=== PATIENT | male | born 1980 | race Caucasian/White ===

== ENCOUNTER 2016-12-11 07:17 | Emergency (ER) | payer OTHER ==
[~2016-12-11] VITALS: Ht 180.3 cm; Wt 81.8 kg
[2016-12-11 07:23] VITALS: BP 122/80; PULSE 97; RESP 16; O2SAT 99
--- NOTE | 2016-12-11 07:33 | ED.REPORT ---
HPI-Dental/Mouth Prob Date of Service Dec 11, 2016 ED Provider: Dr. Kat Pt is a 35 year old male who presents to the ED with concerns for a swollen face that began yesterday. He reports that he has a fractured tooth on the upper right side. He denies any baseline medical conditions Nursing Notes Stated Complaint: POSS ABSCESS IN TOOTH Chief Complaint: Dental Nursing Notes Reviewed: Yes Allergies: Coded Allergies: No Known Allergies (Unverified , 12/11/16) Scheduled Penicillin V Potassium (Penicillin V Potassium) 500 Mg Tablet 500 MG PO QID General Time Seen by MD: 07:32 Chief Complaint Tooth pain Hx Obtained From: Patient Arrived By: Walk-in Onset Occurred: Yesterday Symptom Duration: Since onset Severity: Current: Moderate Severity: Maximum: Moderate Similar Sx Previous: Yes Past Medical History Past Medical History Healthy Past Surgical History Denies Family History Noncontributory Ambulatory Status Independent Review of Systems Constitutional: Denies: Chills, Fever, Malaise Ears / Nose / Throat: Reports: Toothache Respiratory: Denies: Non-productive cough, Shortness of breath, Wheezing GI: Denies: Abdominal pain, Diarrhea, Nausea, Vomiting Complete sys rev & neg: except as marked. Physical Exam Initial Vital Signs Vital Signs (First) Date Time Temp Pulse Resp B/P Pulse Ox O2 Delivery O2 Flow Rate FiO2 12/11/16 07:23 37.0 97 16 122/80 99 Room Air Initial VS: Reviewed General/Constitutional: Well-developed, Well-nourished Head / Eyes: Atraumatic, Normocephalic, PERRL Respiratory: Breath sounds normal, Clear to auscultation, No respiratory distress Cardiovascular: Regular rate & rhythm, Heart sounds normal, Intact distal pulses Skin: Warm, Dry, No cyanosis Neurologic: Alert, Oriented, Nonfocal Dental / Gums: Positive: Dental caries present, Negative: Dental abscess Mild swellin camilla the right jaw line Neck: Atraumatic, Supple, No meningismus Re-Eval/Medical Decision Source of Hx: Old records Re-Evaluation/Progress : Time of Eval: 07:44 Re-Evaluation/Progress Note: Pt is rechecked and informed of his diagnosis and the plan to discharge him at this time. He understands and agrees, all questions are addressed. Counseled Regarding: Diagnosis, Lab results, Need for follow-up, When/why to return to ED Discharge & Departure Primary Impression: Jaw pain Disposition: Home Discharge Condition All VS Reviewed: Yes Condition: Stable Patient Instructions: Dental Caries (ED) Additional Instructions: Take penicillin and ibuprofen. Follow-up with a dentist as soon as possible. Return to the ER if you develop a high fever, inability to swallow, difficulty breathing, or other concerns. Referrals: [facility], [facility] [place] Attestation Portions of this note were transcribed by Alanis Lira. I, Dr. Kat personally performed the history, physical exam and medical decision-making; I reviewed and confirmed the accuracy of the information in the transcribed note. Signed by: Brandon Bullock, 12/11/2016 07:43 copies to: [facility], [facility] Sergei Kat DO Dec 11, 2016 07:33 ELIEL LIRA Dec 11, 2016 07:45
[2016-12-11] MEDS ORDERED: PENI500T PO (07:44)
== END 2016-12-11 07:49 | disposition home or self-care (01) ==
LOC: SED 07:17
DX: R68.84 Jaw pain (principal); R22.0 Localized swelling, mass and lump, head

== ENCOUNTER 2017-01-26 12:42 | Inpatient (IN) | payer OTHER ==
[~2017-01-26] VITALS: Ht 180.3 cm; Wt 83.1 kg
[2017-01-26] VITALS (15 sets, daily range): BP systolic 11–130; BP diastolic 36–84; PULSE 100–113; RESP 13–23; O2SAT 99–100
[~2017-01-26 12:42] MED LIST: PENI500T PO
[2017-01-26] MEDS ORDERED: 0.9% Sodium Chloride 1,000 ML IV ONE (13:00)
--- NOTE | 2017-01-26 13:03 | ED.REPORT ---
HPI-Syncope Date of Service Jan 26, 2017 ED Provider: Mike Marie MD A 36 year old male with a history of daily NSAID use is brought to the ED via EMS due to syncope. The pt has noticed a lack of energy recently, for example not being able to walk far without feeling fatigued. He also reports lightheadedness whenever he stands and has experienced three syncopal episodes in the last three days. The pt's first syncopal episode was three days ago when changing tires at a friend's house. He was unconscious for "a few moments" He noticed "dark stool" after this event, which has continued. The pt was found down near the bathroom by a friend today and was hypotensive with a blood pressure in the eighties per medics. He reportedly stood up from the couch to use the restroom and passed out while walking back to the couch. The pt does not believe that he hit his head or face during these events. He denies chest pain, fever, diaphoresis, chills or shortness of breath. The pt does experience heartburn and indigestion several times per week, which he treats with antacids. He admits to recreational drug use, stating that his last use was two days ago. He denies injecting. The pt also denies any history of anemia. Nursing Notes Stated Complaint: SYNCOPE Chief Complaint: General Complaint Nursing Notes Reviewed: Yes (Synthelis, MINDBODY not reconciled) Allergies: Coded Allergies: No Known Allergies (Unverified , 12/11/16) Scheduled PRN Aspirin/Acetaminophen/Caffeine (Extra Pain Relief Caplet) 250 Mg-250 Mg-65 Mg Tablet 1 EACH PO DIRECTED PRN PRN dental pain General Time Seen by Provider: 13:08 Chief Complaint Other (Syncope) Hx Obtained From: Patient, EMS Arrived By: Ambulance Onset Occurred: 31 - 45 minutes ago Recent Healthcare: Recent doctor visit Similar Sx Previous: Yes Past Medical History Past Medical History heartburn daily NSAID use Past Surgical History None reported Family History Noncontributory Smoking History Unknown if Ever Smoker Social History recreational drug use, unspecified Alcohol Use: "Social" Ambulatory Status Independent Review of Systems Review of Systems Note: "dark stool" Constitutional: Denies: Chills, Fever Respiratory: Denies: Non-productive cough, Shortness of breath Cardiovascular: Denies: Chest pain GI: Denies: Abdominal pain, Bloody/tarry stool, Hematochezia, Nausea, Vomiting Musculoskeletal: Denies: Back pain, Neck pain Skin: Denies Diaphoresis Neurologic: Reports: Syncope Complete sys rev & neg: except as marked. Physical Exam Initial Vital Signs Vital Signs (First) Date Time Temp Pulse Resp B/P Pulse Ox O2 Delivery O2 Flow Rate FiO2 01/26/17 12:59 36.4 113 13 124/36 100 Room Air Initial VS: Reviewed, Vital signs abnormal (hypotensive for EMS) General/Constitutional: Awake, Alert Respiratory / Chest: Atraumatic, Breath sounds NL, Breath sounds = bilat, No respiratory distress Cardiovascular: Heart rate NL, Regular rhythm, Heart sounds NL Lower Extremity / Pelvis / MS: Atraumatic, Full range of motion Neurologic: Oriented X3, Speech NL, No motor deficits, No sensory deficits Head / Eyes: Atraumatic, Normocephalic, PERRL, EOMI ENT: Atraumatic, Airway patent, Mucous membranes moist Neck: Atraumatic, Supple, Full range of motion Abdomen: Atraumatic, Soft, Non-tender Back: Atraumatic, Full range of motion Skin: Atraumatic, No rash, Warm, Dry extremely pale Psychiatric: Affect NL, Mood NL Upper Extremity / MS: Atraumatic, Full range of motion Rectum / Perineum: Atraumatic dark melenic stool guaiac positive Interpretation & Diagnostics Lab Results Interpretation Result Diagram: 01/26/17 1301 01/26/17 1301 Test 01/26/17 13:00 01/26/17 13:01 01/26/17 14:26 Hold Galarza Top Tube Received (Received) White Blood Count 14.0th/mm3 (3.8-10.1) Red Blood Count 1.44mil/mm3 (4.40-5.80) Hemoglobin 4.5g/dL (13.8-17.2) Hematocrit 13.2% (41.0-50.0) Mean Corpuscular Volume 91.7fL (81-100) Mean Corpuscular Hemoglobin 31.3pg (27.0-35.0) Mean Corpuscular Hemoglobin Concent 34.1% (32.0-37.0) Red Cell Distribution Width 13.4% (12.3-15.4) Platelet Count 278bil/L (150-400) Neutrophils (%) (Auto) 77.3% (40-74) Lymphocytes (%) (Auto) 14.8% (14-46) Monocytes (%) (Auto) 6.9% (4-12) Eosinophils (%) (Auto) 0.4% (0-5) Basophils (%) (Auto) 0.2% (0-3) Prothrombin Time 11.1sec (8.1-12.5) Prothromb Time International Ratio 1.04ratio Sodium Level 135mEq/L (134-144) Potassium Level 3.9mEq/L (3.5-5.2) Chloride Level 104mEq/L (97-108) Carbon Dioxide Level 21mmol/L (18-29) Blood Urea Nitrogen 36mg/dL (6-20) Creatinine 0.82mg/dL (0.76-1.27) Estimat Glomerular Filtration Rate 112mL/min (>59) Glucose Level 133mg/dL (60-99) Calcium Level 6.8mg/dL (8.5-10.1) Total Bilirubin < 0.2mg/dL (0.0-1.2) Aspartate Amino Transf (AST/SGOT) 13U/L (0-50) Alanine Aminotransferase (ALT/SGPT) 10U/L (0-44) Alkaline Phosphatase 45U/L (25-150) Total Protein 4.0g/dL (6.4-8.4) Albumin 2.2g/dL (3.4-5.0) Lab Results Interpretation: CBC mild leukocytosis, nonspecific,-severe anemia (Hemoglobin: 4.5), normal MCV CMP normal, elevated BUN/creatinine ratio 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 Dictated by: Anoop Rivera M.D. on 01/26/2017 at 13:37 Approved by: Anoop Rivera M.D. on 01/26/2017 at 13:37 Interpretation / Wet Read by: Interpret - Radiologist Re-Eval/Medical Decision Med Decision/Clinical Course This is a 36-year-old male who denies a previous past medical history as described history of frequent NSAID use, history of frequent dyspepsia requiring toms, this had several days of what sounds like colonic stools and now has lightheadedness and several episodes of syncope or near syncope. The patient is an extremely on engaged, apathetic ( inappropriately so) historian increasing weakness and dizziness. Today he got up to go to the toilet and say "I knew it was a male, immediately to the bathroom and on the way back passed out. He is found hypotensive by the medics and received fluids. His hypertension is resolved. He still tachycardic. He adamantly denies chest pain , shortness of breath, diaphoresis, pleuritic pain, leg swelling, but admitted to Black stools for the past several days. On exam, the patient's extremely weak, extremely pale, and mildly tachycardic- but is no longer hypotensive. Heart and lung exams are normal. He has no tract callejas and indicates he does not inject, but does admit that he babbles and polysubstance abuse and claims that he last used a few days ago. His abdomen is soft and nontender, rectal exam is dark stool, guaiac positive. There is no swelling in the extremities edema or findings of clinical DVT PE. EKG reveals a sinus tachycardia, but no other findings. Labs reveal a severe anemia, normal MCV, but also notable for moderate to significant hypocalcemia. Tox is also been requested. The patient is being admitted. His been typed and cross are waiting for blood be ready to initiate his transfusion, PPI therapy is sitting started. GI has been consult. Indications being admitted. 500 mg of calcium gluconate being given, and a PTH has been sent for the hypocalcemia. Source of Hx: Old records, EMS Re-Evaluation/Progress : Time of Eval: 13:31 Patient Status: Condition improved Re-Evaluation/Progress Note: Pt rechecked, who is stable. The diagnosis and plan for admission are discussed. The pt understands and agrees with the plan. All questions are addressed at this time. Consultation #1: Referral / Consult Name: Tadeo Washington MD Call Returned at: 13:36 Plant Buyer: Agrees with eval Note: Spoke with Dr. Anne, GI, regarding pt's case. Dr. Anne agrees with the evaluatino and plan. Consultation #2: Referral / Consult Name: Chemo Mason Consulted With: Hospitalist Call Returned at: 13:57 Plant Buyer: Agrees with eval, Agrees with plan, Accepts admit Note: Spoke with Dr. Mason, hospitalist, regarding pt's case. Dr. Mason agrees with the evaluation and agrees to admit the pt. Differential Diagnosis: Positive: Anemia, Illicit drug use, Negative: Abdominal aortic aneurysm, Acute coronary syndrome, Dysrhythmia, Electrolyte disorder, Encephalitis, Head trauma, Pneumothorax, Prolonged QT syndrome, Pulmonary embolus, Subarachnoid hemorrhage Counseled Regarding: Diagnosis, Lab results, Need for admission Discharge & Departure Impression: Primary Impression: Symptomatic anemia Additional Impressions: GI bleed due to NSAIDs Hypocalcemia Substance abuse Disposition: ADMITTED TO HOSPITAL Discharge Condition All VS Reviewed: Yes Condition: Stable Referrals: Torres Ashley DO Crit Care Except Billable Proc Time Spent: 30-74 minutes Services Performed: Patient management by me, Time spent at bedside, Reviewing test results, Reviewing imaging, Discussing patient care, Documentation in record Scribe Attestation Portions of this note were transcribed by Marilia Coffey. I, Dr. Marie personally performed the history, physical exam and medical decision-making; I reviewed and confirmed the accuracy of the information in the transcribed note. copies to: Torres Ashley Matthew F MD Jan 26, 2017 13:03 MARILIA COFFEY Jan 26, 2017 13:26
[2017-01-26 13:11] LABS: BASOPHILS % (AUTO) 0.2 % (0-3); EOSINOPHILS % (AUTO) 0.4 % (0-5); MONOCYTES % (AUTO) 6.9 % (4-12); Mean Corpuscular Hemoglobin 31.3 pg (27.0-35.0); Mean Corpuscular Volume 91.7 fL (81-100); NEUTROPHILS % (AUTO) 77.3 % (40-74); Platelet Count 278 bil/L (150-400)
[2017-01-26] MEDS ORDERED: Calcium GLUCOnate 10% (Gm) 1 Gm/10 mL Inj IVPUSH ONE (13:35)
--- NOTE | 2017-01-26 13:39 | DRSVH ---
PROCEDURE: X-RAY CHEST ONE VIEW, PORTABLE ([id number]) INDICATIONS: syncope TECHNIQUE: One view of the chest was acquired. COMPARISON: None. FINDINGS: Surgical changes and devices: None. Lungs and pleura: No pleural effusions or pneumothorax. Lungs are clear. Mediastinum: Mediastinal contours appear normal. Heart size is normal. Bones and chest wall: No suspicious bony lesions. Overlying soft tissues appear unremarkable. IMPRESSION: Normal for age. Dictated by: Anoop Rivera M.D. on 01/26/2017 at 13:37 Approved by: Anoop Rivera M.D. on 01/26/2017 at 13:37
[2017-01-26] MEDS ORDERED: Pantoprazole Inj 80 MG, Pharmacy To Mix 1 EA in 0.9% Sodium Chloride 80 ML IV ONE ×2 (13:40)
[2017-01-26] MEDS ORDERED: Pantoprazole 4 mg/mL 10 mL Inj IVPUSH ONE (13:40)
[2017-01-26 13:56] LABS: INR 1.04 ratio
[2017-01-26] MEDS ORDERED: [UNRECOGNIZED DRUG - CODE] PO (14:45)
--- NOTE | 2017-01-26 15:01 | NUR ---
Admit nurse note Admission assessment completed in the ER. Pt. wakes to verbal stimulus but falls asleep during my interview several times. He denies pain or other complaints aside from feeling cold. Pt. gives history of chronic dental pain, for which he takes excedrin regularly, as well as heartburn, R ear hearing loss/deafness and meth use. Pt. reports last using meth 1 week ago. NKA verified. Report given to Lucretia Goldman.
--- NOTE | 2017-01-26 15:09 | CONS ---
[address] [address] CONSULTATION REPORT PATIENT: YUAN COREA : 1980 MR#: [id number] ADMIT: 01/26/2017 JOB ID: [id number] DATE OF SERVICE: 01/26/2017 GASTROENTEROLOGY CONSULTATION: REASON FOR CONSULTATION: Melena and anemia. HISTORY OF PRESENT ILLNESS: A 36-year-old male with a history of NSAID use, in which he takes Excedrin three times a day, two pills each time, who presents here for melena and anemia. The patient was brought here to the emergency department by EMS. Found to have melenic stool x1 day. The patient was found down in the bathtub by a friend today. The patient admits to recreational drug use. The patient was brought in with a hemoglobin of 4.5, hematocrit of 13. The patient states he noticed that he had been having black stool. He has been taking Excedrin for the past 2-4 weeks. The patient never had an EGD or colonoscopy in the past. Denies family history of colon cancer, IBD, or celiac disease. The patient denies bright red blood per rectum, nausea, vomiting, hematemesis, abdominal pain, unintentional weight loss. PAST MEDICAL HISTORY: None. PAST SURGERIES: None. ALLERGIES: No known drug allergies. MEDICATIONS: None. SOCIAL HISTORY: He has recreational drug use as well as drinking. No smoking. FAMILY HISTORY: Negative for colon cancer, IBD, or celiac disease. REVIEW OF SYSTEMS: The patient denies headache, blurred vision, nausea, vomiting, chest pain, shortness of breath, abdominal pain, skin rash, or joint pain. PHYSICAL EXAMINATION: Vital signs upon presentation: Temperature is 36.4, pulse 113, respiratory rate 13, blood pressure 124/36, saturating 100% on room air. General: No apparent distress. Head: No scars. Eyes: Anicteric. Throat: Supple. Lungs: Clear to auscultation bilaterally. Cardiovascular: Regular rhythm and rate. Abdomen: Soft, nondistended, nontender. Normal bowel sounds. Extremities: No cyanosis, clubbing, or edema. LABORATORY: Labs show sodium 135, potassium 3.9, chloride 104, bicarb 21, BUN 36, creatinine 0.8, glucose 133. Calcium 6.8. Total bili 0.2, AST 13, ALT 10, alk phos 45. Total protein 4.0, albumin 2.2. White blood cell count 14.0, hemoglobin 4.5, hematocrit 13, platelet count of 278. INR 1.0. ASSESSMENT AND PLAN: A 36-year-old male who presents here with melena and profound anemia with a hemoglobin of 4.5, with a history of Excedrin two pills three times a day for the past 2-4 weeks. At this point in time the patient's differential diagnosis includes bleeding peptic ulcer disease (most likely) vs possibly pathology with the right side of the colon (which is unlikely). The patient will need to be hemodynamically stable prior to doing an upper endoscope. RECOMMENDATIONS: 1. Aggressive IV fluid hydration. 2. Please transfuse packed red blood cells per ER physician and hospitalist team. 3. N.p.o. except for medications. 4. GoLYTELY prep today for EGD and colonoscopy with anesthesia scheduled for tomorrow. 5. Protonix drip. 6. We will continue to follow. MTDD
[2017-01-26] MEDS ORDERED: Ondansetron 2 mg/mL 2 mL Inj IVPUSH PRN ×2 (15:25→19:20)
[2017-01-26] MEDS ORDERED: Alum-Mag Hydrox-Simeth 30 mL Suspension PO PRN ×2 (15:25→19:20)
--- NOTE | 2017-01-26 17:20 | PCM.HPMED ---
Subjective Date of Service Jan 26, 2017 Primary Provider: Admitting Physician: Chemo Mason Primary Care Physician: Luciano Attending Physician: Chemo Mason Admit Status: From the Emergency Department, Full Admit, Admit to Yellow Team, Critical Care Chief Complaint: Generalized weakness and syncope. . History of Present Illness: Ritesh Gardner is a 36-year-old male with a past medical history significant for GERD, dental caries, and methamphetamine use disorder who presented to [facility] emergency department via EMS due to syncope. The patient reports that over the last week he has noticed progressive weakness to the extent that he collapses. He reports that he has not been able to walk far without feeling fatigued. He also reports lightheadedness whenever he stands and has experienced three syncopal episodes in the last three days. The patient first syncopal episode was three days ago when changing tires at a friend's house. He was unconscious for "a few moments." She endorses melena a few days ago. Today the patient was found down near the bathroom by a friend and was hypotensive with a SBP in the 80's per paramedics. He reportedly stood up from the couch to use the restroom and passed out while walking back to the couch. He does not believe that he has had not had any trauma during his syncopal episodes. He denies headache, chest pain, shortness of breath, diaphoresis, nausea, vomiting, abdominal pain, fever, chills, dysuria, hematochezia, diarrhea or constipation. The patient endorses acid reflux several times per week which he takes Tums for. He has been taking Excedrin extra strength for several weeks due to a recent toothache. He admits to taking 4-6 pills with food per day. He admits to methamphetamine use and reports his last use was one week ago. He denies IV drug use. He also denies any history of anemia, IBD , or previous GI bleed. Vital signs in the ER: Temperature 36.4. Pulse 113. Respiratory rate 13. Blood pressure 124/36. Pulse ox 100% on room air. He received calcium gluconate IV 0.5 g 1, pantoprazole IV 80 mg 1, and 3 L of NS. No PCP. Review of Systems: A comprehensive review of systems was conducted with the patient and found to be negative except as above in the History of Present Illness. . Allergies Coded Allergies: No Known Allergies (Unverified , 12/11/16) Home Medications Excedrin Extra Strength. . PMH 1. GERD. 2. Methamphetamine use disorder. 3. Dental caries. . Surgical History None. . Family History Mother with diabetes mellitus type II. Father's history is unknown. One sister who is healthy. No personal or family history of colon cancer or IBD. . Social History Hx Alcohol Use: Yes (as teen) Hx Substance Use: Yes (smokes methamphetamine - last use 1 week ago) Hx Tobacco Use: Yes Smoking Status: Current Every Day Smoker (1 PPD 20+ years) Additional Information The patient is single. He has 3 children, 1 son and 2 daughters who are healthy. He is currently unemployed. . Exam Vital Signs Vital Sign - Last Date Time Temp Pulse Resp B/P Pulse Ox O2 Delivery O2 Flow Rate FiO2 01/26/17 16:28 36.9 104 19 111/45 100 Room Air Exam General: Young male lying in bed and in no acute distress, well-developed, well- nourished, appropriately interactive. HEENT: Normocephalic, atraumatic. External ears without defect. Pupils equal, round, and reactive to light. Scleral pallor. Anicteric sclerae, moist conjunctivae, and no lid lag. Oropharynx free of erythema and cobble stoning with moist mucosa. Neck: Supple with full range of motion. No lymphadenopathy or thyromegaly. Cardiovascular: Regular rhythm, tachycardic, without murmurs, rubs, or gallops appreciated Pulmonary: Clear to auscultation bilaterally without crackles, wheezes, or rhonchi. Normal respiratory effort with no use of accessory muscles. Abdomen:Soft, nontender, nondistended, bowel sounds present. No hepatosplenomegaly or masses appreciated. Extremities: No clubbing, cyanosis, or edema. Skin: Normal temperature, turgor, and texture; no rash, ulcers, or subcutaneous nodules appreciated. Neurological: Cranial nerves grossly intact. Normal muscle strength, tone, and bulk. Reflexes, coordination, and sensory function within normal limits. No known gait impairment. Psychiatric: Normal mood and flat affect. Alert and oriented to person, place, and time. . Lab and Diagnostics Labs Item Value Date Time Prothrombin Time 11.1 sec 01/26/17 1301 Prothromb Time International Ratio 1.04 ratio 01/26/17 1301 Item Value Date Time Urine Opiates Screen Negative 01/26/17 1426 Urine Methadone Screen Negative 01/26/17 1426 Urine Barbiturates Screen Negative 01/26/17 1426 Urine Amphetamines Screen Negative 01/26/17 1426 Urine Benzodiazepines Screen Negative 01/26/17 1426 Urine Cocaine Metabolite Screen Negative 01/26/17 1426 Urine Cannabinoids Screen Negative 01/26/17 1426 Item Value Date Time Calcium Level 6.8 mg/dL *L 01/26/17 1301 Total Bilirubin < 0.2 mg/dL 01/26/17 1301 Aspartate Amino Transf (AST/SGOT) 13 U/L 01/26/17 1301 Alanine Aminotransferase (ALT/SGPT) 10 U/L 01/26/17 1301 Alkaline Phosphatase 45 U/L 01/26/17 1301 Total Protein 4.0 g/dL L 01/26/17 1301 Albumin 2.2 g/dL L 01/26/17 1301 Parathyroid Hormone (Intact) 67 pg/mL H 01/26/17 1447 Result Diagram: 01/26/17 1301 01/26/17 1301 X-Rays, CTs and MRIs X-RAY CHEST ONE VIEW, PORTABLE IMPRESSION: Normal for age. Dictated by: Anoop Rivera M.D. on 01/26/2017 at 13:37 Approved by: Anoop Rivera M.D. on 01/26/2017 at 13:37 . Assessment & Plan Ritesh Gardner is a 36-year-old male with a past medical history significant for GERD, dental caries, and methamphetamine use disorder who presented to [facility] emergency department via EMS due to syncope. 1. Acute upper GI bleed, present on admission. Active. - Patient presents with progressive generalized weakness, syncope, and melena with significant anemia. Afebrile without leukocytosis. - Initial hemoglobin and hematocrit 4.5 and 13.2 respectively and BUN 36 which supports acute blood loss anemia. - Received 3 L of NS in the ED. Continue aggressive IV fluid hydration. - Ordered 3 units of PRBC. - NPO except for medications. - Ordered GoLYTELY prep today for EGD and colonoscopy with anesthesia tomorrow per GI. - Continue Protonix gtt. - Gastroenterology consulted, Dr. Washington, who plans for both upper and lower endoscopy tomorrow. We appreciate his time and recommendations. 2. Acute blood loss anemia, present on admission. Active. - Patient has been crossed and typed and is currently receiving 3 units of PRBCs. - Continue to monitor vital signs and H&H closely. 3. Hypocalcemia, present on admission. Active. - Likely secondary to severe illness and profound anemia. - Ordered iPTH and ionized calcium, pending. Chronic problems: 3. Amphetamine use disorder, present on admission. Stable. - The patient reports that he smokes methamphetamines and that his last use was one week ago. - Counseled the patient on methamphetamine cessation and abstinence. - Ordered a social work referral. 4. GERD, present on admission. Stable. - Continue PPI drip as above. PRN antiemetics: Zofran and Maalox. PRN bowel regimen: Senna and MiraLAX. PRN analgesics: Tylenol. Patient is admitted under inpatient status with expected length of stay greater than 2 midnights due to severity of presenting symptoms, risk of adverse event, and complexity of treatment plan. . Resuscitation Status: CPR: Attempt Resuscitation VTE Prophylaxis Contraindicate VTE Med Contraindication: Bleeding Time spent 60 min Attending Statement The patient was seen and examined together with Dr. Garcia on 01/26/17 and I agree with the history, exam and plan as outlined in the note above. Letty Garcia DO Jan 26, 2017 17:20 Chemo Mason Jan 27, 2017 10:29
--- NOTE | 2017-01-26 17:20 | NUR ---
Pt admitted to CCU at approx 1630hrs Pt admitted from the ER with 1st unit of RBC's infusing. Pt is drowsy, but easily woken and is approp in conversation. Pt is in ST in the 110's, BP 110's to 120's sys. Protonix is infusing. No obvious bleeding noted at this time.
[2017-01-26 18:26] LABS: APPEARANCE,URINE CLEAR (CLEAR,HAZY); COLOR,URINE STRAW (YELLOW); OCCULT BLOOD,URINE SMALL (NEGATIVE); PH,URINE 7.5 (5.0-8.0); UROBILINOGEN,URINE NORMAL (NORMAL)
--- NOTE | 2017-01-26 18:27 | NUR ---
IVFs prior to arrival to CCU Pt received 2l NS by medics and an additional 1l NS in the ER. His 1st unit of RBC's was started in the ER and completed in CCU. 2nd unit RBC's starting now.
[2017-01-26] MEDS: Pantoprazole Inj 80 MG in 0.9% Sodium Chloride 80 ML IV SCH ×2 (19:20→23:29)
[2017-01-26] MEDS ORDERED: Polyethylene Glycol (PEG) 17 Gm Powder PO PRN (19:20)
[2017-01-26] MEDS ORDERED: PEG/Electrolytes 4,000 mL Solution PO SCH (19:35)
[2017-01-27] VITALS (11 sets, daily range): BP systolic 96–116; BP diastolic 51–68; PULSE 71–97; RESP 13–16; O2SAT 96–100
[2017-01-27 03:12] LABS: BASOPHILS % (AUTO) 0.2 % (0-3); EOSINOPHILS % (AUTO) 0.4 % (0-5); MONOCYTES % (AUTO) 8.9 % (4-12); Mean Corpuscular Volume 85.8 fL (81-100); NEUTROPHILS % (AUTO) 54.2 % (40-74); Platelet Count 247 bil/L (150-400)
[2017-01-27 03:39] LABS: TROPONIN T 0.01 ug/L (0.0-0.011)
[2017-01-27 03:50] LABS: Magnesium 1.5 mg/dL (1.6-2.6)
--- NOTE | 2017-01-27 04:06 | NUR ---
Mentation/Cardiac/GI Patient drowsy but aware of surroundings, pleasant and cooperative, BP stable this shift, pt received 3 units PRBC's and HGB 7.2 and HCT 19.0 this AM, notified, no new orders received, patient finished GoLytley prep at 0300, felt nauseated when drinking it but did not have any emesis, passing maroon colored liquid stool, NPO since midnight except for the GoLytley, A-Febrile and HR decreased from the 110's to the 60-70's at this time, no distress noted, no active bleeding or bright red blood noted when patient uses bedside commode. Addendum: 01/27/17 at 0413 by AYAD VIVAR RN Amended: Links added.
[2017-01-27] MEDS ORDERED: Magnesium Sulf 4 Gm/100 mL H2O 4 GM in IV Premix 1 EACH IV ONE (04:20)
[2017-01-27] MEDS ORDERED: Lactated Ringer's 1,000 ML IV ONE ×2 (06:00→14:54)
[2017-01-27] MEDS ORDERED: Ketamine 10 mg/mL 20 mL Inj ONE (06:04)
[2017-01-27] MEDS ORDERED: Propofol 10,000 mCg/mL 20 mL Inj ONE (06:04)
[2017-01-27] MEDS ORDERED: Magnesium Sulf 2 Gm/50mL Water 2 GM in IV Premix 1 EACH IV ONE (06:50)
[2017-01-27] MEDS: Pantoprazole Inj 80 MG in 0.9% Sodium Chloride 80 ML IV SCH ×2 (11:12→21:41)
--- NOTE | 2017-01-27 11:32 | PCM.HPANE ---
Patient Data Surgeon Admitting Provider:Chemo Mason Attending Provider:Chemo Mason Primary Care Physician:Nopcp Other Provider: Reason for Visit Gi Bleed,Anemia Ht/WT & BMI Height (Feet): 5 Height (Inches): 11.00 Weight (Kilograms): 86.600 Body Mass Index 26.08 Allergies Coded Allergies: No Known Allergies (Unverified , 12/11/16) Past Anesthesia History Anesthesia History: Denies:: Abnormal Airway, Anesthesia Reactions, Difficult Intubation Diabetes History Hx Diabetes?: No MRSA MRSA: No Medications Hypertension Medication: No Home Meds Incl Beta Bashir: No Reported Medications Aspirin/Acetaminophen/Caffeine (Extra Pain Relief Caplet)250 Mg-250 Mg-65 Mg Tablet1 Each PO DIRECTED PRN dental pain 01/26/17 Discontinued Scripts Penicillin V Potassium 500 Mg [id number] Mg PO QID #40 TABLET Ref 0 Prov:Sergei Kat DO 12/11/16 History History of ENT Problems?: Yes HEENT History: Denies:: Cataracts Dysphagia Glaucoma Sinus Problem Denture Type: None Teeth Condition: Missing Teeth Other HEENT Pertinent History: R ear hearing impairment, chronic dental pain Hx of Heart Problems?: No Cardiovascular History: Denies:: Congestive Heart Failure Hx of Respiratory Problem?: No Respiratory History: Denies:: Asthma COPD Chest Surgery Cough Dyspnea Emphysema Hemoptysis Oxygen Administration Pneumonia Pulmonary Embolism Tuberculosis Use of C-PAP Machine Use of Inhalers / NEBS Hx Neurologic Problems?: No Hx of GI Problems?: Yes Other GI Pertinent History: GIB 01/26/17 admission Hx of Problems?: No Male Hx: Denies:: Prostate Problems Scrotal Mass Testicular Surgery Hx Musculoskeletal Problems?: No Hx of Psycho/Social Problems?: No Hx Surgeries?: No Hx Any Other Health Problems?: No Other History: Denies:: Cancer Hospitalization Thyroid Disease History Blood Transfusions: Positive for:: Accept Blood Products? Denies:: Blood Transfusions Hx Diabetes: No Hx Alcohol Use: Yes (as teen)Hx Substance Use: Yes (smokes methamphetamine - last use 1 week ago) Smoking Status: Current Every Day Smoker Have You Smoked inLast 12 mo: YesApprox How Many Cigarettes/day: 20 cigarettes daily Stop/Bang Treated for Sleep Apnea?: No Do You Have a CPAP Machine?: No S-Snoring: Do You Snore Loudly: No O-Obsered: Observed not breath: No P-Blood Pressure: treated: No B- Body Mass Index > 35 kg/m2: No A- Age over 50: No N- Neck Large Circumference: No G- Gender Male: Yes TOMASZ Risk Assessment: Low Risk, <3 Yes Risk Assessment Category Category 1A: Patient has history of documented sleep apnea, and HAS NOT received any narcotic, sedative or anesthesia administration during this stay. Category 1B: Patient has history of documented sleep apnea, and HAS received any narcotic , sedative or anesthesia administration during this stay Category 2: Patient has SUSPECTED Obstructive Sleep Apnea, and HAS received any narcotic , sedative or anesthesia administration during this stay. Category 3: Patient has SUSPECTED Obstructive Sleep Apnea and HAS NOT received narcotic, sedative or anesthesia administration during this stay. Category 4: Outpatient in Procedural Areas with known sleep apnea or who screen positive for High Risk via the STOP/BANG questionnaire. Exam Exam Vital Signs Vital Signs Date Time Temp Pulse Resp B/P Pulse Ox O2 Delivery O2 Flow Rate FiO2 01/27/17 11:14 36.9 95 14 103/54 98 Room Air 01/27/17 09:10 75 01/27/17 08:30 37.0 81 14 112/53 99 Room Air 01/27/17 04:03 37.1 71 13 107/61 98 Room Air General Appearance: Alert, Oriented X3, Cooperative, No Acute Distress HEENT/AIRWAY: MP 2 Lungs: Clear to Auscultation, Normal Air Movement Heart: Exam Unremarkable, Regular Rate/Rhythm, No Murmurs/Rubs/Gallops Meds/Labs/Diagnostics Admission Meds Current Medications Sodium Chloride (Normal Saline) 1,000 ml @ 0 mls/hr Q0M ONCE IV Last administered on 01/26/17 13:28; Start 01/26/17 at 13:00; Stop 01/26/17 at 13:03 ; Status DC Calcium Gluconate (Calcium GLUCO 10% (Gm) Inj) 0.5 gm ONCE ONCE IVPUSH Last administered on 01/26/17 14:13; Start 01/26/17 at 13:35; Stop 01/26/17 at 13:39 ; Status DC Pantoprazole 80 mg 80 mg STAT ONCE IVPUSH Last administered on 01/26/17 14:05 ; Start 01/26/17 at 13:40; Stop 01/26/17 at 13:41; Status DC Pantoprazole 80 mg/Miscellaneous 1 ea/Sodium Chloride 100 ml @ 10 mls/hr ONCE ONCE IV Last administered on 01/26/17 14:05; Start 01/26/17 at 13:40; Stop at 23:39; Status DC Lactated Ringer's (Lr) 1,000 ml @ 10 mls/hr Q24H ONCE IV Last administered on 01/27/17 04:38; Start 01/27/17 at 06:00; Stop 01/28/17 at 05:59 Nicotine 1 patch 1 patch DAILY TOPICAL Last administered on 01/26/17 20:37; Start 01/26/17 at 19:20; Stop 01/27/17 at 07:00; Status DC Pantoprazole/ Sodium Chloride (Protonix Inj/ Normal Saline) 100 ml @ 10 mls/hr Q10H IV Last administered on 01/27/17 11:12; Start 01/26/17 at 19:20 Polyethylene Glycol/ Electrolytes 4000 ml 4,000 ml ONCE PO Last administered on 01/26/17 20:36; Start 01/26/17 at 19:35; Stop 01/27/17 at 10:35; Status DC Magnesium Sulfate/ Premix (Magnesium Sulf 4 Gm/100 mL H2O/ IV Premix) 100 ml @ 33.333 mls/ hr ONCE ONCE IV Last administered on 01/27/17 04:38; Start at 04:20; Stop 01/27/17 at 07:19; Status DC Labs Test 01/26/17 13:00 01/26/17 13:01 01/26/17 14:26 01/26/17 14:47 Hold Galarza Top Tube Received (Received) Prothrombin Time 11.1sec (8.1-12.5) Prothromb Time International Ratio 1.04ratio Total Bilirubin < 0.2mg/dL (0.0-1.2) Aspartate Amino Transf (AST/SGOT) 13U/L (0-50) Alanine Aminotransferase (ALT/SGPT) 10U/L (0-44) Alkaline Phosphatase 45U/L (25-150) Total Protein 4.0g/dL (6.4-8.4) Albumin 2.2g/dL (3.4-5.0) Urine Color Straw (YELLOW) Urine Appearance Clear (CLEAR,HAZY) Urine pH 7.5 (5.0-8.0) Urine Specific [place] 1.010 (1.003-1.035) Urine Protein 100mg/dL (NEG,TRACE) Urine Glucose (UA) 100mg/dL (NEGATIVE) Urine Ketones Negativemg/dL (NEGATIVE) Urine Occult Blood Small (NEGATIVE) Urine Nitrite Negative (NEGATIVE) Urine Bilirubin Negative (NEGATIVE) Urine Urobilinogen Normalmg/dL (NORMAL) Urine Leukocyte Esterase Negative (NEGATIVE) Urine RBC 0-2/hpf (0-2) Urine WBC 0-5/hpf (0-5) Urine Epithelial Cells None/hpf (NONE-MOD) Urine Crystals None seen (NONE SEEN) Urine Bacteria None/hpf (NONE-FEW) Urine Hyaline Casts None/lpf (NONE) Urine Granular Casts None seen (NONE SEEN) Urine Waxy Casts None seen (NONE SEEN) Urine Red Blood Cell Casts None seen (NONE SEEN) Urine White Blood Cell Casts None seen (NONE SEEN) Urine Mucus None seen (None Seen) Urine Trichomonas None seen (NONE SEEN) Urine Yeast None (NONE SEEN) Urinalysis Comment None Urine Culture Reflexed Not indicated Urine Opiates Screen Negative Urine Methadone Screen Negative Urine Barbiturates Screen Negative Urine Amphetamines Screen Negative Urine Benzodiazepines Screen Negative Urine Cocaine Metabolite Screen Negative Urine Cannabinoids Screen Negative Parathyroid Hormone (Intact) 67pg/mL (15-65) Test 01/27/17 03:00 01/27/17 07:22 White Blood Count 10.2th/mm3 (3.8-10.1) Red Blood Count 2.32mil/mm3 (4.40-5.80) Mean Corpuscular Volume 85.8fL (81-100) Mean Corpuscular Hemoglobin 31.0pg (27.0-35.0) Mean Corpuscular Hemoglobin Concent 36.2% (32.0-37.0) Red Cell Distribution Width 15.7% (12.3-15.4) Platelet Count 247bil/L (150-400) Neutrophils (%) (Auto) 54.2% (40-74) Lymphocytes (%) (Auto) 35.6% (14-46) Monocytes (%) (Auto) 8.9% (4-12) Eosinophils (%) (Auto) 0.4% (0-5) Basophils (%) (Auto) 0.2% (0-3) Band Neutrophils % 1% (1-5) Sodium Level 141mEq/L (134-144) Potassium Level 3.5mEq/L (3.5-5.2) Chloride Level 107mEq/L (97-108) Carbon Dioxide Level 22mmol/L (18-29) Blood Urea Nitrogen 18mg/dL (6-20) Creatinine 0.75mg/dL (0.76-1.27) Estimat Glomerular Filtration Rate 124mL/min (>59) Glucose Level 95mg/dL (60-99) Calcium Level 6.9mg/dL (8.5-10.1) Magnesium Level 1.5mg/dL (1.6-2.6) Troponin T 0.010ug/L (0.0-0.011) Hemoglobin 7.1g/dL (13.8-17.2) Hematocrit 20.1% (41.0-50.0) Plan Impression Patient chart reviewed, patient interviewed and anesthestic plan with risks, benefits, and alternatives discussed, and informed consent obtained. NPO per Anesth. Guidelines: Yes ASA Physical Status: ASA3 Severe Disease (METH ABUSE) Anesthetic Plan: MAC Bene/Risks/Altern/Consents: Yes HP Complete Prior to Induction: Yes Loan Momin MD Jan 27, 2017 11:32 Jackson Verdzuco MD Jan 27, 2017 14:54
[2017-01-27] MEDS ORDERED: Lactated Ringer's 1,000 ML IV SCH (14:54)
[2017-01-27] MEDS ORDERED: MetoCLOpramide 5 mg/mL 2 mL Inj IVPUSH PRN (14:55)
[2017-01-27] MEDS ORDERED: Ondansetron 2 mg/mL 2 mL Inj IVPUSH PRN (14:55)
--- NOTE | 2017-01-27 14:56 | PCM.PNMED ---
Subjective Date of Service Jan 27, 2017 Subjective Today that patient states that he feels much improved compared to presentation, he states that his dizziness is much improved, and he no longer feels light headed. He states that the tooth which had been afflicting him is not as intense. He denies chest pain, SOB, nausea, vomiting, or diarrhea. Overnight the patient received 2 U PRBC, with 2 more units given in the AM to good effect. Exam Vital Signs Vital Sign - Last Date Time Temp Pulse Resp B/P Pulse Ox O2 Delivery O2 Flow Rate FiO2 01/27/17 11:14 36.9 95 14 103/54 98 Room Air Intake and Output 01/26/17 01/26/17 01/27/17 Cumulative From/Thru 15:00 23:00 07:00 01/26/17 12:59 - 01/27/17 06:04 Intake Total 999 ml 4211 ml 4116 ml 9326 ml Output Total 600 ml 1100 ml 1700 ml Balance 999 ml 3611 ml 3016 ml 7626 ml Intake Oral 400 ml 4000 ml 4400 ml IV Total 999 ml 3210 ml 116 ml 4325 ml Packed Cells 601 ml 601 ml Output Urine Total 600 ml 1100 ml 1700 ml # Bowel Movements 4 4 Exam Gen: A/O x3 pleasant cooperative gentleman in NAD Neck: Supple, non tender, no JVD, Full ROM HEENT: PERRL, EOMI, no scleral icterus, poor dentition with inflammation in the gums in upper right back molar CV: RRR, no murmurs rubs or gallops Resp: Lungs CTA BL, no wheezing rales or rhonchi Abd: Mild diffuse tenderness to palpation, no rebound guarding or masses Extr: No clubbing cyanosis or edema Neuro: CN 2-12 grossly intact, no focal neurologic deficit Psych: Pleasant and appropriate mood and affect. IVs and Medications Medications Reviewed: Medications were reviewed in detail Lab and Diagnostics Item Value Date Time Red Blood Count 2.32 mil/mm3 L 01/27/17 0300 Mean Corpuscular Volume 85.8 fL 01/27/17 0300 Mean Corpuscular Hemoglobin 31.0 pg 01/27/17 0300 Mean Corpuscular Hemoglobin Concent 36.2 % 01/27/17 0300 Red Cell Distribution Width 15.7 % H 01/27/17 0300 Neutrophils (%) (Auto) 54.2 % 01/27/17 0300 Lymphocytes (%) (Auto) 35.6 % 01/27/17 0300 Monocytes (%) (Auto) 8.9 % 01/27/17 0300 Eosinophils (%) (Auto) 0.4 % 01/27/17 0300 Basophils (%) (Auto) 0.2 % 01/27/17 0300 Band Neutrophils % 1 % 01/27/17 030 Glucose Level 95 mg/dL 01/27/17 0300 Estimat Glomerular Filtration Rate 124 mL/min 01/27/17 0300 Magnesium Level 1.5 mg/dL L 01/27/17 0300 Troponin T 0.010 ug/L 01/27/17 030 Result Diagram: 01/27/1772101/27/17299 Microbiology Nasal MRSA screen pending X-Rays, CTs and MRIs X-RAY CHEST ONE VIEW, PORTABLE IMPRESSION: Normal for age. Dictated by: Anoop Rivera M.D. on 01/26/2017 at 13:37 Approved by: Anoop Rivera M.D. on 01/26/2017 at 13:37 . Assessment & Plan Ritesh Gardner is a 36-year-old male with a past medical history significant for GERD, dental caries, and methamphetamine use disorder who presented to [facility] emergency department via EMS due to syncope. The patient reports that he had been taking large doses of Excedrin due to tooth pain. Acute upper GI bleed, present on admission. Active. - Patient presents with progressive generalized weakness, syncope, and melena with significant anemia. Afebrile without leukocytosis. - Initial hemoglobin and hematocrit 4.5 and 13.2 respectively and BUN 36 which supports acute blood loss anemia. - Received 3 L of NS in the ED. Continue aggressive IV fluid hydration. - Ordered 3 units of PRBC. - NPO except for medications. - Patient will go to endoscopy with Dr. Washington for upper and lower endoscopy to hopefully identify and correct the source of the bleed - Continue Protonix gtt. Acute blood loss anemia, present on admission. Active. - Patient has been crossed and typed and is currently receiving 3 units of PRBCs. - Continue to monitor vital signs and H&H closely. Hypocalcemia, present on admission. Active. - Likely secondary to severe illness and profound anemia. - Ordered iPTH and ionized calcium, pending. Syncope, POA, acute. Active - Likely secondary to anemia as above - dizziness improved following PRBC administration - Be aware of fall risk Chronic problems: Amphetamine use disorder, present on admission. Stable. - The patient reports that he smokes methamphetamines and that his last use was one week ago. - Counseled the patient on methamphetamine cessation and abstinence. - Ordered a social work referral. GERD, present on admission. Stable. - Continue PPI drip as above. Disposition: Patient likely to improve rapidly should source of bleed prove identifiable and correctable, anticipate DC home with no needs in 1-2 days. . Pain Evaluation: Adequate Pain Control GI Prophylaxis: Proton Pump Inhibitor VTE Prophylaxis: Other (Contraindicated due to GI bleed) Resuscitation Status: CPR: Attempt Resuscitation Attending Statement The patient was seen and examined together with Dr. Skinner on 01/27/17 and I agree with the history, exam and plan as outlined in the note above. Tadeo Skinner DO Jan 27, 2017 14:55 Chemo Mason Jan 27, 2017 18:25
--- NOTE | 2017-01-27 16:12 | ENDO ---
[address] [address] ENDOSCOPY PROCEDURE PATIENT: YUAN COREA : 1980 MR#: [id number] ADMIT: 01/26/2017 JOB ID: [id number] DATE OF SERVICE: 01/27/2017 TYPE OF OPERATION: Esophagogastroduodenoscopy with biopsy and colonoscopy. PREOPERATIVE DIAGNOSES: 1. Melena. 2. Anemia. POSTOPERATIVE DIAGNOSIS(ES): 1. Multiple ulcers; four seen in duodenal bulb, and multiple ulcers seen in the antrum, clean based, nonbleeding, all of them. The largest size 8 mm. Status post biopsy. Without stigmata of bleeding. 2. Melena seen throughout the entire colon with intubation at terminal ileum which basically also showed melena. No bright red blood that was seen throughout the entire colon. ANESTHESIA: Monitored anesthesia care. COMPLICATIONS: None. BLOOD LOSS: Minimal. DESCRIPTION OF PROCEDURE: After risks and benefits were explained to the patient, informed consent was obtained. After anesthesia administered, upper endoscope was inserted into the mouth, intubated into the esophagus, stomach, second portion of duodenum. Mucosa carefully examined. After procedure was done, the scope withdrawn and procedure terminated. A colonoscope was inserted from the rectum to the cecum. Mucosa carefully examined. Prep of the patient was suboptimal. After procedure, the scope withdrawn and procedure terminated. FINDINGS: Upon inspection of the esophagus, the esophagus appeared normal without masses, ulcers, or lesions. Z-line located 40 cm from incisors. Upon entering stomach, there were multiple gastric ulcers in the antrum that were seen. Clean based, nonbleeding. Four of them were seen. Retroflexion was normal. Duodenal bulb, first and second portion were normal except multiple again clean based, nonbleeding ulcers seen in the duodenal bulb, which was clean based, nonbleeding, largest size 8 mm, status post biopsy. Biopsies also taken at the gastric ulcer, duodenal ulcer and body of stomach. Upon inspection of the anus, no masses, hemorrhoids, ulcers or fissures seen. Throughout the entire examination, there is melenic stool that was seen throughout the entire colon. Intubation in terminal ileum also show melena. Retroflexion was normal. IMPRESSION: 1. Multiple ulcers in the duodenal bulb, and also in the antrum, clean based, nonbleeding, 8 mm in size without overt signs of bleeding. Status post biopsy. 2. Melena was seen throughout the entire colon including melena in terminal colon. RECOMMENDATIONS: 1. Await pathology results. 2. Continue Protonix drip for 72 hours. 3. Okay to start clear liquid diet. Advance as tolerated. 4. Serial hematocrits.
--- NOTE | 2017-01-27 16:33 | NUR ---
Pt Returned from Endo at 1630hrs Pt is awake alert and approp, asking for diet and fluids, VS stable.
--- NOTE | 2017-01-27 17:34 | NUR ---
Social Work-attempted assessment: Data:EMR reviewed. Pt is a 36 y/o male who was admitted on 01/26/17 for GI Bleed per H&P. Pt's insurance is [employer] and PCP is not listed. EMR reviewed. SW attempted to see pt today, but pt off the floor at [facility]. MD order received for CD assessment. Pt has history of meth use. SW to follow up with pt tomorrow to complete assessment. Assessment:pt who is independent at baseline. Plan:SW to follow up with pt tomorrow to complete assessment. SW will continue to follow. LAYO Dye
[2017-01-28] VITALS (11 sets, daily range): BP systolic 104–124; BP diastolic 62–73; PULSE 69–101; RESP 15–20; O2SAT 97–98
[2017-01-28 04:58] LABS: BASOPHILS % (AUTO) 0.4 % (0-3); EOSINOPHILS % (AUTO) 1.6 % (0-5); MONOCYTES % (AUTO) 8.5 % (4-12); Mean Corpuscular Volume 88.2 fL (81-100); NEUTROPHILS % (AUTO) 53.4 % (40-74); Platelet Count 279 bil/L (150-400)
[2017-01-28 05:26] LABS: Magnesium 1.8 mg/dL (1.6-2.6); Phosphorus 3.5 mg/dL (2.5-4.9)
--- NOTE | 2017-01-28 05:52 | PCM.PNSURG ---
Subjective Date of Service: Jan 28, 2017 Date of Service: Jan 28, 2017 Visit Information: Subjective: s/p egd/colon yesterday. no complaints. hb stable 7.1 Postop General: No Complaints Objective Vital Sign- Last 8 Hours Date Time Temp Pulse Resp B/P Pulse Ox O2 Delivery O2 Flow Rate FiO2 01/28/17 05:44 86 01/28/17 03:59 37.1 99 15 116/66 98 Room Air 01/27/17 23:33 37.0 97 16 107/68 98 Room Air Intake and Output- Last 8 Hour 01/28/17 Cumulative From/Thru 07:00 01/26/17 12:59 - 01/28/17 03:59 Intake Total 1600 ml 91691 ml Output Total 1650 ml 5430 ml Balance -50 ml 6808 ml Intake Oral 1600 ml 6500 ml IV Total 5137 ml Packed Cells 601 ml Output Urine Total 1650 ml 5430 ml # Bowel Movements 4 General: Oriented X3 Neck: Supple Lungs: Clear to Auscultation Heart: Exam Unremarkable Abdomen: Benign, Soft, Non-tender, Non-distended, Normoactive bowel tones Extremities: Distal Pulses Palpable Result Diagram: 01/28/17 0450 01/28/17 0450 Assessment & Plan Impression A 36-year-old male who presents here with melena and profound anemia with a hemoglobin of 4.5, with a history of Excedrin two pills three times a day for the past 2-4 weeks. At this point in time the patient's differential diagnosis includes bleeding peptic ulcer disease (most likely) vs possibly pathology with the right side of the colon (which is unlikely). The patient will need to be hemodynamically stable prior to doing an upper endoscope. s/p egd/colon 01/27- IMPRESSION: 1. Multiple ulcers in the duodenal bulb, and also in the antrum, clean based, nonbleeding, 8 mm in size without overt signs of bleeding. Status post biopsy. 2. Melena was seen throughout the entire colon including melena in terminal colon. RECOMMENDATIONS: 1. Await pathology results. 2. Continue Protonix drip for 72 hours (through monday 01/29). if no overt signs bleed and hb stable monday am 01/30, then transition to PO protonix 40mg bid 3. Advance diet as tolerated. 4. Serial hematocrits. 5. Carafate 1g po qid 6. Avoid nsaids will cont to follow Problems: VTE Prophylaxis: Other (Contraindicated due to GI bleed) Resuscitation Status: CPR: Attempt Resuscitation Tadeo Washington MD Jan 28, 2017 05:52
--- NOTE | 2017-01-28 06:44 | NUR ---
Activity Pt was able to ambulate with a steady gait in the halls this evening with no c/o dizziness or SOB. Pt rested throughout the shift and H&H remains steady at 7.1/20.2.
[2017-01-28] MEDS ORDERED: Furosemide 10 mg/mL 2 mL Inj IV ONE ×2 (07:40→14:55)
[2017-01-28] MEDS: Pantoprazole Inj 80 MG in 0.9% Sodium Chloride 80 ML IV SCH ×2 (08:45→20:03)
--- NOTE | 2017-01-28 09:37 | PCM.PNMED ---
Subjective Date of Service Jan 28, 2017 Subjective Denies any new issues/complaints. no abdominal pain. no BM since yesterday. Exam Vital Signs Vital Sign - Last Date Time Temp Pulse Resp B/P Pulse Ox O2 Delivery O2 Flow Rate FiO2 01/28/17 08:42 99 01/28/17 08:29 36.8 18 117/67 01/28/17 03:59 98 Room Air Intake and Output 01/27/17 01/27/17 01/28/17 Cumulative From/Thru 15:00 23:00 07:00 01/26/17 12:59 - 01/28/17 06:39 Intake Total 1312 ml 1721 ml 14559 ml Output Total 2080 ml 1650 ml 5430 ml Balance -768 ml 71 ml 6929 ml Intake Oral 500 ml 1600 ml 6500 ml IV Total 812 ml 121 ml 5258 ml Packed Cells 601 ml Output Urine Total 2080 ml 1650 ml 5430 ml # Bowel Movements 4 General: Alert, Cooperative, No Acute Distress Head: Normal Eyes: Scleral Anicteric Nose: Mucous Membr Moist/[place] Mouth: Mucous Membr Moist/[place] Neck: Supple Chest & Lungs: Chest Wall Normal, Clear to auscultation & percussion Cardiovascular: Regular Rate/Rhythm Abdomen: Non-tender, Non-distended, Normoactive bowel tones, Soft Extremities: No cyanosis/clubbing/edma bilat Neurological: Grossly Neurologically Intact, Normal Speech Additional Information: Psych: Calm, Normal affect IVs and Medications Medications Reviewed: Medications were reviewed in detail Lab and Diagnostics Result Diagram: 01/28/17 0450 01/28/17 0450 Microbiology Nasal MRSA screen pending X-Rays, CTs and MRIs X-RAY CHEST ONE VIEW, PORTABLE IMPRESSION: Normal for age. Dictated by: Anoop Rivera M.D. on 01/26/2017 at 13:37 Approved by: Anoop Rivera M.D. on 01/26/2017 at 13:37 . Assessment & Plan 36-year-old male with a past medical history significant for GERD, dental caries , and methamphetamine use disorder who presented to [facility] emergency department via EMS due to syncope. The patient reports that he had been taking large doses of Excedrin due to tooth pain. Acute upper GI bleed, present on admission. Stabilizing. - Patient presents with progressive generalized weakness, syncope, and melena with significant anemia. Afebrile without leukocytosis. - Received 3 L of NS in the ED. - Post esophagogastroduodenoscopy (EGD) with biopsy and colonoscopy on 01/27/17 showing: - Multiple ulcers; four seen in duodenal bulb, and multiple ulcers seen in the antrum, clean based, nonbleeding, all of them. The largest size 8 mm. Status post biopsy. Without stigmata of bleeding. - Melena seen throughout the entire colon with intubation at terminal ileum which basically also showed melena. No bright red blood that was seen throughout the entire colon. - Appreciate GI consult. Will followup with recs - Continue with PPI - Further advancing of diet per GI recs - Followup repeat h/h in AM Acute blood loss anemia, present on admission. Active. - Post 3 units of PRBCs on admission - Transfuse 2 more units PRBC on 01/28/17 given Hgb<8 and risk of bleeding - Continue to monitor vital signs and H&H closely. Hypocalcemia, present on admission. - Improving - Likely secondary to severe illness and profound anemia. - Ordered iPTH and ionized calcium, pending. Syncope, POA, acute. Active - Likely secondary to profound anemia as above - dizziness improved following PRBC administration - Be aware of fall risk - Followup pending echo Chronic problems: Amphetamine use disorder, present on admission. Stable. - The patient reports that he smokes methamphetamines and that his last use was one week ago. - Counseled the patient on methamphetamine cessation and abstinence. - Ordered a social work referral. GERD, present on admission. Stable. - Continue PPI as above. Disposition: 1-2 days pending GI clearance and stable h/h . GI Prophylaxis: Proton Pump Inhibitor VTE Prophylaxis: Other (Contraindicated due to GI bleed) Resuscitation Status: CPR: Attempt Resuscitation Chemo Mason Jan 28, 2017 09:37
--- NOTE | 2017-01-28 12:09 | DRSVH ---
[facility] [address] [place] [address] Echocardiogram Report Name: YUAN COREA GStudy Date: Height: 71 in Hospital Exam Location: [facility] Weight: 191 lb Gender: Male BSA: 2.1 m2 : 1980 Age: 36 yrs BP: 107/61 mmHg Reason For Study: SYNCOPE Ordering Physician: Performed By: Fuad Phan Interpretation Summary The echocardiogram is within normal limits. Procedure: A two-dimensional transthoracic echocardiogram with color flow and Doppler was performed. The study quality was technically good. There is no prior echocardiogram noted for this patient. The patient was in normal sinus rhythm during the exam. Left Ventricle: The left ventricle is normal in size. There is normal left ventricular wall thickness. The ejection fraction is estimated to be 60-65%. There are no focal wall motion abnormalities. Right Ventricle: The right ventricle is normal in size and function. Atria: The left atrium is mildly dilated. Right atrial size is normal. The interatrial septum is intact with no evidence for an atrial septal defect. Mitral Valve: The mitral valve is normal in structure and function. There is no mitral regurgitation noted. Aortic Valve: The aortic valve is normal in structure and function. The aortic valve is trileaflet. The aortic valve opens well. No aortic regurgitation is present. Tricuspid Valve: The tricuspid valve is normal in structure and function. There is a trace or physiologic amount of tricuspid regurgitation. The right ventricular systolic pressure is estimated at 17 mmHg assuming a right atrial pressure of 3 mm Hg. Pulmonic Valve: The pulmonic valve is normal in structure and function. There is trace pulmonic regurgitation. Great Vessels: The aortic root is normal size. The dimensions of the ascending aorta are normal. The pulmonary artery is normal size. The IVC is of normal diameter and collapses greater than 50% with a sniff. This suggests a low right atrial pressure of 3 mm Hg. Pericardium/ Pleura There is no pericardial effusion. There is no pleural effusion. MMode/2D Measurements & Calculations LVIDd: 5.1 cm LA dimension: 3.8 cm LVIDs: 3.2 cm FS: 37.8 % LA A2 area: 24.1 cm EPSS: 0.32 cm LA A4 area: 23.2 cm IVSd: 0.77 cm LA length (vol): 5.9 cm LVPWd: 0.84 cm LA vol: 80.3 ml LA vol index: 38.8 ml/m IVC diam: 1.8 cm RA long axis: 5.2 cm Ao root diam: 3.2 cm RA area: 20.0 cm Aortic Jxn: 2.9 cm RA vol: 64.9 ml asc Aorta Diam: 3.3 cm RA : 31.4 ml/m2 Ao Arch Diam (Prox Trans): 3.0 cm LV cotton. diameter/BSA (cm/m^2): 2.5 LV sys. diameter/BSA (cm/m^2): 1.5 Doppler Measurements & Calculations Ao V2 max: 171.2 cm/sec MV E max uri: 90.4 cm/sec Ao max P.7 mmHg MV A max uri: 58.1 cm/sec Ao mean P.0 mmHg MV E/A: 1.6 TR max uri: 192.9 cm/sec Med Peak E' Uri: 11.1 cm/sec TR max P.9 mmHg E/E' med: 8.1 PA V2 max: 93.3 cm/sec Lat Peak E' Uri: 17.1 cm/sec PA mean P.1 mmHg E/E' lat: 5.3 PA Accel Time: 0.12 sec E/e' average: 6.7 Pulm A Revs Dur: 0.10 sec MV dec time: 0.19 sec Ao V2 mean: 130.5 cm/sec Ao V2 VTI: 31.1 cm PA V2 mean: 68.2 cm/sec PA pr(Accel): 21.6 mmHg Electronically signed by: Jose Reyna on Reading Physician:01/27/2017 12:08 PM
--- NOTE | 2017-01-28 15:23 | NUR ---
GI: Pt remains on Protonix gtt for ulcer treatment, tolerating general diet, voiding independently. Hgb level 7.1 this am, 2 units PRBCs transfused per MD orders, no s/s of transfusion reactions. Repeat Hgb level pending. Pt a/o, moves all extremities, VSS, tele SR. Care ongoing.
[2017-01-29] VITALS (8 sets, daily range): BP systolic 108–118; BP diastolic 64–73; PULSE 80–98; RESP 15–20; O2SAT 97–99
[2017-01-29] MEDS: Pantoprazole Inj 80 MG in 0.9% Sodium Chloride 80 ML IV SCH ×2 (05:15→17:16)
--- NOTE | 2017-01-29 07:00 | NUR ---
Rest Pt has been able to rest throughout the cook night. VSS and pt has no c/o dizziness, weakness, N/V, or syncope. No AM Labs at this time to trend current H&H and oncoming RN has been made aware.
[2017-01-29 08:07] LABS: BASOPHILS % (AUTO) 0.4 % (0-3); EOSINOPHILS % (AUTO) 2.1 % (0-5); MONOCYTES % (AUTO) 10.4 % (4-12); Mean Corpuscular Hemoglobin 30.4 pg (27.0-35.0); NEUTROPHILS % (AUTO) 48.8 % (40-74); Platelet Count 326 bil/L (150-400)
--- NOTE | 2017-01-29 12:49 | PCM.PNMED ---
Subjective Date of Service Jan 29, 2017 Subjective Today Mr. Gardner states that he feels well, he has no focal complaints. Overnight the patient's H/H continues to be stable. Exam Vital Signs Vital Sign - Last Date Time Temp Pulse Resp B/P Pulse Ox O2 Delivery O2 Flow Rate FiO2 01/29/17 08:11 37.2 89 15 117/71 98 Room Air Intake and Output 01/28/17 01/28/17 01/29/17 Cumulative From/Thru 15:00 23:00 07:00 01/26/17 12:59 - 01/29/17 06:55 Intake Total 765 ml 1680 ml 633 ml 10612 ml Output Total 1925 ml 7355 ml Balance 765 ml -245 ml 633 ml 8182 ml Intake Oral 1680 ml 400 ml 8580 ml IV Total 150 ml 233 ml 5741 ml Packed Cells 615 ml 1216 ml Output Urine Total 1925 ml 7355 ml # Voids 3 3 # Bowel Movements 0 4 Exam Gen: A/O x3 pleasant cooperative gentleman in NAD Neck: Supple, non tender, no JVD, Full ROM HEENT: PERRL, EOMI, no scleral icterus, poor dentition with inflammation in the gums in upper right back molar CV: RRR, no murmurs rubs or gallops Resp: Lungs CTA BL, no wheezing rales or rhonchi Abd: Mild diffuse tenderness to palpation, no rebound guarding or masses Extr: No clubbing cyanosis or edema Neuro: CN 2-12 grossly intact, no focal neurologic deficit Psych: Pleasant and appropriate mood and affect. IVs and Medications Medications Reviewed: Medications were reviewed in detail Lab and Diagnostics Item Value Date Time Red Blood Count 3.16 mil/mm3 L 01/29/17 075 Mean Corpuscular Volume 88.0 fL 01/29/17 075 Mean Corpuscular Hemoglobin 30.4 pg 01/29/17 075 Mean Corpuscular Hemoglobin Concent 34.5 % 01/29/17 075 Red Cell Distribution Width 16.7 % H 01/29/17 0753 Neutrophils (%) (Auto) 48.8 % 01/29/17 0753 Lymphocytes (%) (Auto) 36.4 % 01/29/17 075 Monocytes (%) (Auto) 10.4 % 01/29/17 075 Eosinophils (%) (Auto) 2.1 % 01/29/17 075 Basophils (%) (Auto) 0.4 % 01/29/173 Estimat Glomerular Filtration Rate 100 mL/min 01/29/17752 Calcium Level 8.2 mg/dL L 01/29/17752 Total Bilirubin 0.3 mg/dL 01/29/17752 Aspartate Amino Transf (AST/SGOT) 18 U/L 01/29/17752 Alanine Aminotransferase (ALT/SGPT) 18 U/L 01/29/17752 Alkaline Phosphatase 63 U/L 01/29/17752 Total Protein 5.1 g/dL L 01/29/17752 Albumin 3.0 g/dL L 01/29/17752 Result Diagram: 01/29/1775201/29/17752 Microbiology Nasal MRSA screen pending X-Rays, CTs and MRIs X-RAY CHEST ONE VIEW, PORTABLE IMPRESSION: Normal for age. Dictated by: Anoop Rivera M.D. on 01/26/2017 at 13:37 Approved by: Anoop Rivera M.D. on 01/26/2017 at 13:37 . Cardiac Echo Impressions Interpretation Summary The echocardiogram is within normal limits. Electronically signed by: Jose Reyna on Reading Physician:01/27/2017 12:08 PM . Assessment & Plan 36-year-old male with a past medical history significant for GERD, dental caries , and methamphetamine use disorder who presented to [facility] emergency department via EMS due to syncope. The patient reports that he had been taking large doses of Excedrin due to tooth pain. Acute upper GI bleed, present on admission. Stabilizing. - Patient presents with progressive generalized weakness, syncope, and melena with significant anemia. Afebrile without leukocytosis. - Received 3 L of NS in the ED. - Post esophagogastroduodenoscopy (EGD) with biopsy and colonoscopy on 01/27/17 showing: - Multiple ulcers; four seen in duodenal bulb, and multiple ulcers seen in the antrum, clean based, nonbleeding, all of them. The largest size 8 mm. Status post biopsy. Without stigmata of bleeding. - Melena seen throughout the entire colon with intubation at terminal ileum which basically also showed melena. No bright red blood that was seen throughout the entire colon. - Appreciate GI consult. Will followup with recs - Continue with PPI IV for a further 24 hours, will transition to PO tomorrow - Will DC tomorrow if H/H continues to be stable - Further advancing of diet per GI recs - Followup repeat h/h in AM Acute blood loss anemia, present on admission. Active. - Post 3 units of PRBCs on admission - Transfuse 2 more units PRBC on 01/28/17 given Hgb<8 and risk of bleeding - Continue to monitor vital signs and H&H closely. Hypocalcemia, present on admission. - Improving - Likely secondary to severe illness and profound anemia. - Ordered iPTH and ionized calcium, pending. Syncope, POA, acute. Active - Likely secondary to profound anemia as above - dizziness improved following PRBC administration - Be aware of fall risk - Followup pending echo Chronic problems: Amphetamine use disorder, present on admission. Stable. - The patient reports that he smokes methamphetamines and that his last use was one week ago. - Counseled the patient on methamphetamine cessation and abstinence. - Ordered a social work referral. GERD, present on admission. Stable. - Continue PPI as above. Disposition: 1 day pending GI clearance and stable h/h . Pain Evaluation: Adequate Pain Control GI Prophylaxis: Proton Pump Inhibitor VTE Prophylaxis: Other (Contraindicated due to GI bleed) Resuscitation Status: CPR: Attempt Resuscitation Attending Statement The patient was seen and examined together with Dr. Skinner on 01/29/17 and I agree with the history, exam and plan as outlined in the note above. Tadeo Skinner DO Jan 29, 2017 12:49 Chemo Mason Jan 29, 2017 16:43
--- NOTE | 2017-01-29 13:42 | PCM.PNMED ---
Subjective Date of Service Jan 29, 2017 Subjective no complaints tolerating regular diet no bowel movements since prep for colonoscopy Exam Vital Signs Vital Sign - Last Date Time Temp Pulse Resp B/P Pulse Ox O2 Delivery O2 Flow Rate FiO2 01/29/17 12:51 37.0 98 18 111/64 98 Room Air Intake and Output 01/28/17 01/28/17 01/29/17 Cumulative From/Thru 15:00 23:00 07:00 01/26/17 12:59 - 01/29/17 06:55 Intake Total 765 ml 1680 ml 633 ml 26447 ml Output Total 1925 ml 7355 ml Balance 765 ml -245 ml 633 ml 8182 ml Intake Oral 1680 ml 400 ml 8580 ml IV Total 150 ml 233 ml 5741 ml Packed Cells 615 ml 1216 ml Output Urine Total 1925 ml 7355 ml # Voids 3 3 # Bowel Movements 0 4 Exam GEN- no distress, appropriate HEENT- no pallor RESP- clear bilatrerally CVS-RRR abdomen- soft and benign Lab and Diagnostics Result Diagram: 01/29/17 0753 01/29/17 0753 Microbiology Nasal MRSA screen pending X-Rays, CTs and MRIs X-RAY CHEST ONE VIEW, PORTABLE IMPRESSION: Normal for age. Dictated by: Anoop Rivera M.D. on 01/26/2017 at 13:37 Approved by: Anoop Rivera M.D. on 01/26/2017 at 13:37 . Cardiac Echo Impressions Interpretation Summary The echocardiogram is within normal limits. Electronically signed by: Jose Reyna on Reading Physician:01/27/2017 12:08 PM . Assessment & Plan Peptic Ulcer Disease/Acute Anemia -H/H stable -no clinical evidence of bleeding -Continue PPI drip for one more day -Follow H/H, transfuse blood products as needed -Repeat EGD in 8-12 weeks -will need to be on PPI BID until repeat EGD -avoid NSAIDS GI Prophylaxis: Proton Pump Inhibitor VTE Prophylaxis: Other (Contraindicated due to GI bleed) Resuscitation Status: CPR: Attempt Resuscitation Svitlana Lee MD Jan 29, 2017 13:42
--- NOTE | 2017-01-29 16:51 | NUR ---
Social Work: Note D&A: [employer] requested that a CD assessment order be completed by MD in AM rounds on this day. of 1651, this order has not yet been placed; accordingly, [employer] team is unable to compete this assessment at this time. [employer] team to follow-up for order on 01/30. LAYO Echols
[2017-01-30] MEDS: Pantoprazole Inj 80 MG in 0.9% Sodium Chloride 80 ML IV SCH (05:14)
[2017-01-30 05:15] VITALS: BP 110/77; PULSE 86; RESP 16; O2SAT 97
[2017-01-30 06:02] LABS: BASOPHILS % (AUTO) 0.2 % (0-3); EOSINOPHILS % (AUTO) 2.3 % (0-5); Mean Corpuscular Volume 89.4 fL (81-100); Platelet Count 352 bil/L (150-400)
[2017-01-30 06:13] LABS: Magnesium 1.9 mg/dL (1.6-2.6); Phosphorus 4.6 mg/dL (2.5-4.9)
--- NOTE | 2017-01-30 07:36 | NUR ---
GI/ AM Labs Pt has been able to pass gas all night long and pt tolerates PO intake of a general diet with no issue. Pt still has not had a BM since the when he was prepped with [facility] for the upper and lower endoscopy procedures. Pt's AM labs show that his H&H is stable. All VSS and pt continues to be AOx3 and independent.
--- NOTE | 2017-01-30 08:20 | PCM.PNSURG ---
Subjective Date of Service: Jan 30, 2017 Date of Service: Jan 30, 2017 Visit Information: Subjective: hb 10.8. no overt signs gi bleed Postop General: No Complaints Objective Vital Sign- Last 8 Hours Date Time Temp Pulse Resp B/P Pulse Ox O2 Delivery O2 Flow Rate FiO2 01/30/17 05:15 36.9 86 16 110/77 97 Room Air Intake and Output- Last 8 Hour 01/30/17 Cumulative From/Thru 07:00 01/26/17 12:59 - 01/30/17 06:32 Intake Total 1000 ml 58528 ml Output Total 4 ml 9084 ml Balance 996 ml 8374 ml Intake Oral 1000 ml 95998 ml IV Total 5842 ml Packed Cells 1216 ml Output Urine Total 4 ml 9084 ml # Voids 3 # Bowel Movements 4 General: Oriented X3 Neck: Supple Lungs: Clear to Auscultation Heart: Exam Unremarkable Abdomen: Benign, Soft, Non-tender, Non-distended, Normoactive bowel tones Extremities: Distal Pulses Palpable Result Diagram: 01/30/1752901/30/17529 Assessment & Plan Impression A 36-year-old male who presents here with melena and profound anemia with a hemoglobin of 4.5, with a history of Excedrin two pills three times a day for the past 2-4 weeks. At this point in time the patient's differential diagnosis includes bleeding peptic ulcer disease (most likely) vs possibly pathology with the right side of the colon (which is unlikely). The patient will need to be hemodynamically stable prior to doing an upper endoscope. s/p egd/colon 01/27- IMPRESSION: 1. Multiple ulcers in the duodenal bulb, and also in the antrum, clean based, nonbleeding, 8 mm in size without overt signs of bleeding. Status post biopsy. 2. Melena was seen throughout the entire colon including melena in terminal colon. RECOMMENDATIONS: 1. Await pathology results. 2. d/c protonix gtt and start PO protonix 40mg bid 3. Advance diet as tolerated. 4. Carafate 1g po qid 5. Avoid nsaids 6. OK to d/c home today from gi perspective will sign off Problems: VTE Prophylaxis: Other (Contraindicated due to GI bleed) Resuscitation Status: CPR: Attempt Resuscitation Tadeo Washington MD Jan 30, 2017 08:20
[2017-01-30 08:31] VITALS: BP 97/70; PULSE 90; RESP 18; O2SAT 98
[2017-01-30 10:23] VITALS: PULSE 61
--- NOTE | 2017-01-30 10:35 | NUR ---
Social Work: Initial Assessment/Attempted Chemical Dependency Assessment/Multidisciplinary Rounds D: Per EMR review, pt is a 36 year old male admited for GI Bleed, Anemia. Patient is [facility] with no LTC or VA benefits. PCP does not have a PCP and is not sure if he wants WAREHOUSE PRICING AND INVENTORY CLERK to make him an appointment. Pt declined advanced directives from WAREHOUSE [employer]ICING AND INVENTORY CLERK. Readmit score is low, 2/8. Pt discussed in Multidisciplinary rounds. Capacity for self care discussed; no concerns or needs at this time. Patient likely to d/c home today. No needs. WAREHOUSE PRICING AND INVENTORY CLERK met with the patient at bedside. Social work/dcp role explained, contact information and discharge planning checklist provided. See initial assessment. Patient lives in [place] in a home on his grandmother's property. Pt is I with self-care and ADLs and uses no DME. 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 He has never had or Skilled rehab. WAREHOUSE PRICING AND INVENTORY CLERK inquired about patient's substance use. Patient confirms a recent history of smoking meth. 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 Patient states "I know all the resources in the area and can figure it out if I need it." Patient declined to further participate in assessment and declined outpatient CD resources from WAREHOUSE PRICING AND INVENTORY CLERK. A: Pt who is I at baseline. P: Anticipate discharge home with his mom or g/f to transport. WAREHOUSE PRICING AND INVENTORY CLERK to continue to follow to assess for unmet d/c needs. LAYO Meier Addendum: 01/30/17 at 1042 by MANUEL BRASWELL Amended: Links added.
[2017-01-30] MEDS ORDERED: PANT40TA3 PO (10:55)
--- NOTE | 2017-01-30 11:02 | PCM.DIMED ---
Discharge Instructions Date of Service Jan 30, 2017 Dates of Hospitalization Jan 26, 2017 at 14:28 Discharge Diagnosis Discharge Diagnosis Acute upper GI bleed, present on admission. Stabilizing. Acute blood loss anemia, present on admission. Active. Hypocalcemia, present on admission. Syncope, POA, acute. Active Amphetamine use disorder, present on admission. Stable. GERD, present on admission. Stable. . Medication Instructions Additional med instructions Please do not take any more aspirin, Tylenol, or Ibuprofen until cleared to do so by your Primary care provider. Test Results Test Results Summary report from Colonoscopy IMPRESSION: 1. Multiple ulcers in the duodenal bulb, and also in the antrum, clean based, nonbleeding, 8 mm in size without overt signs of bleeding. Status post biopsy. 2. Melena was seen throughout the entire colon including melena in terminal colon. . Diet Discharge Diet: No restrictions Activity Discharge Activity: No restrictions Call your provider Call your provider for: Fever or Chills, Shortness of breath, Bleeding, Chest pain, Vomitting, Excessive diarrhea, Weakness (unilateral) Patient Instructions Patient Instructions Please follow up with your dentist about getting your tooth pulled. This should help relieve your pain and eliminate the need for further pain medication. It is also very important that you take steps to get off Meth entirely; Meth is likely the cause of your tooth disease and will cause life changing difficulties if you continue to use. Follow-up plan Please establish care with a Primary care provider, we will send a referral to the [facility] as they generally have availability for hospital follow up. You should also follow up with a Gastro Intestinal specialist within 2 weeks for further management and discussion about the biopsy results from your colonoscopy which is still pending. Follow-up Provider: [facility] Follow-up with PCP in: 2 weeks Provider: Tadeo Washington MD Follow-up in: 2 weeks Tadeo Skinner DO Jan 30, 2017 11:02
--- NOTE | 2017-01-30 12:42 | NUR ---
spiritual care: pt request Visited with pt who is about to be discharged. Conversational visit. Offered a blessing before leaving the room. Spiritual care will continue to follow as needed.
--- NOTE | 2017-01-30 16:03 | PCM.DC.MED ---
Discharge Summary Date of Service Jan 30, 2017 Dates of Hospitalization Date of Hospital Admission Jan 26, 2017 at 14:28 Date of Discharge: Jan 30, 2017 Providers: Admitting Physician: Chemo Mason Primary Care Physician: Luciano Attending Physician: Chemo Mason Diagnosis at Time of Discharge Diagnosis at Time of Discharge Acute upper GI bleed, present on admission. Stabilizing. Acute blood loss anemia, present on admission. Active. Hypocalcemia, present on admission. Syncope, POA, acute. Active Amphetamine use disorder, present on admission. Stable. GERD, present on admission. Stable. . Consultations GI with Dr. Rich Procedures XRay, CTs & MRIs X-RAY CHEST ONE VIEW, PORTABLE IMPRESSION: Normal for age. Dictated by: Anoop Rivera M.D. on 01/26/2017 at 13:37 Approved by: Anoop Rivera M.D. on 01/26/2017 at 13:37 . Cardiac Echo Impression Interpretation Summary The echocardiogram is within normal limits. Electronically signed by: Jose Reyna on Reading Physician:01/27/2017 12:08 PM . Brief History Taken From History and Physical composed by Dr. Garcia on 01/26/17 Ritesh Gardner is a 36-year-old male with a past medical history significant for GERD, dental caries, and methamphetamine use disorder who presented to [facility] emergency department via EMS due to syncope. The patient reports that over the last week he has noticed progressive weakness to the extent that he collapses. He reports that he has not been able to walk far without feeling fatigued. He also reports lightheadedness whenever he stands and has experienced three syncopal episodes in the last three days. The patient first syncopal episode was three days ago when changing tires at a friend's house. He was unconscious for "a few moments." She endorses melena a few days ago. Today the patient was found down near the bathroom by a friend and was hypotensive with a SBP in the 80's per paramedics. He reportedly stood up from the couch to use the restroom and passed out while walking back to the couch. He does not believe that he has had not had any trauma during his syncopal episodes. He denies headache, chest pain, shortness of breath, diaphoresis, nausea, vomiting, abdominal pain, fever, chills, dysuria, hematochezia, diarrhea or constipation. The patient endorses acid reflux several times per week which he takes Tums for. He has been taking Excedrin extra strength for several weeks due to a recent toothache. He admits to taking 4-6 pills with food per day. He admits to methamphetamine use and reports his last use was one week ago. He denies IV drug use. He also denies any history of anemia, IBD , or previous GI bleed. Vital signs in the ER: Temperature 36.4. Pulse 113. Respiratory rate 13. Blood pressure 124/36. Pulse ox 100% on room air. He received calcium gluconate IV 0.5 g 1, pantoprazole IV 80 mg 1, and 3 L of NS. No PCP. . Hospital Course 36-year-old male with a past medical history significant for GERD, dental caries , and methamphetamine use disorder who presented to [facility] emergency department via EMS due to syncope. The patient reports that he had been taking large doses of Excedrin due to tooth pain. He underwent upper and lower endoscopy which revealed several ulcers throughout the upper GI tract. His H/H stabilized over the course of his hospital stay. He was discharged with a script for Protonix to continue taking until GI follow up, and instructed to avoid NSAIDs, seek dental treatment for his offending tooth, and quit using Methamphetamine. Acute upper GI bleed, present on admission. Stabilizing. - Patient presented with progressive generalized weakness, syncope, and melena with significant anemia. Afebrile without leukocytosis. - Received 3 L of NS in the ED. - Post esophagogastroduodenoscopy (EGD) with biopsy and colonoscopy on 01/27/17 showing: - Multiple ulcers; four seen in duodenal bulb, and multiple ulcers seen in the antrum, clean based, nonbleeding, all of them. The largest size 8 mm. Status post biopsy. Without stigmata of bleeding. - Melena seen throughout the entire colon with intubation at terminal ileum which basically also showed melena. No bright red blood that was seen throughout the entire colon. - Appreciate GI consult. Will followup with recs - Initially on Protonix and Octreotide drip, transitioned to PO upon DC Acute blood loss anemia, present on admission. Active. - Post 3 units of PRBCs on admission - Transfused 2 more units PRBC on 01/28/17 given Hgb<8 and risk of bleeding - Continued to monitor vital signs and H&H closely. Hypocalcemia, present on admission. - Improving - Likely secondary to severe illness and profound anemia. - iPTH and ionized calcium were unremarkable Syncope, POA, acute. Active - Likely secondary to profound anemia as above - dizziness improved following PRBC administration - We were vigilant for fall risk - ECHO within normal limits Chronic problems: Amphetamine use disorder, present on admission. Stable. - The patient reports that he smokes methamphetamines and that his last use was one week ago. - Counseled the patient on methamphetamine cessation and abstinence. - Ordered a social work referral. GERD, present on admission. Stable. - Continued PPI as above. . Exam Vital Signs (Last) Date Time Temp Pulse Resp B/P Pulse Ox O2 Delivery O2 Flow Rate FiO2 01/30/17 10:23 61 01/30/17 08:31 37.0 18 97/70 98 Room Air Exam Gen: A/O x3 pleasant cooperative gentleman in NAD Neck: Supple, non tender, no JVD, Full ROM HEENT: PERRL, EOMI, no scleral icterus, poor dentition with inflammation in the gums in upper right back molar CV: RRR, no murmurs rubs or gallops Resp: Lungs CTA BL, no wheezing rales or rhonchi Abd: Mild diffuse tenderness to palpation improved since admission, no rebound guarding or masses Extr: No clubbing cyanosis or edema Neuro: CN 2-12 grossly intact, no focal neurologic deficit Psych: Pleasant and appropriate mood and affect. Test 01/26/17 13:00 01/26/17 13:01 01/26/17 14:26 01/26/17 14:47 Hold Galarza Top Tube Received (Received) Prothrombin Time 11.1sec (8.1-12.5) Prothromb Time International Ratio 1.04ratio Urine Color Straw (YELLOW) Urine Appearance Clear (CLEAR,HAZY) Urine pH 7.5 (5.0-8.0) Urine Specific [place] 1.010 (1.003-1.035) Urine Protein 100mg/dL (NEG,TRACE) Urine Glucose (UA) 100mg/dL (NEGATIVE) Urine Ketones Negativemg/dL (NEGATIVE) Urine Occult Blood Small (NEGATIVE) Urine Nitrite Negative (NEGATIVE) Urine Bilirubin Negative (NEGATIVE) Urine Urobilinogen Normalmg/dL (NORMAL) Urine Leukocyte Esterase Negative (NEGATIVE) Urine RBC 0-2/hpf (0-2) Urine WBC 0-5/hpf (0-5) Urine Epithelial Cells None/hpf (NONE-MOD) Urine Crystals None seen (NONE SEEN) Urine Bacteria None/hpf (NONE-FEW) Urine Hyaline Casts None/lpf (NONE) Urine Granular Casts None seen (NONE SEEN) Urine Waxy Casts None seen (NONE SEEN) Urine Red Blood Cell Casts None seen (NONE SEEN) Urine White Blood Cell Casts None seen (NONE SEEN) Urine Mucus None seen (None Seen) Urine Trichomonas None seen (NONE SEEN) Urine Yeast None (NONE SEEN) Urinalysis Comment None Urine Culture Reflexed Not indicated Urine Opiates Screen Negative Urine Methadone Screen Negative Urine Barbiturates Screen Negative Urine Amphetamines Screen Negative Urine Benzodiazepines Screen Negative Urine Cocaine Metabolite Screen Negative Urine Cannabinoids Screen Negative Parathyroid Hormone (Intact) 67pg/mL (15-65) Test 01/27/17 03:00 01/27/17 13:30 01/30/17 05:30 Band Neutrophils % 1% (1-5) Troponin T 0.010ug/L (0.0-0.011) Ionized Calcium 1.10mmol/L (1.17-1.32) White Blood Count 10.2th/mm3 (3.8-10.1) Red Blood Count 3.48mil/mm3 (4.40-5.80) Hemoglobin 10.8g/dL (13.8-17.2) Hematocrit 31.1% (41.0-50.0) Mean Corpuscular Volume 89.4fL (81-100) Mean Corpuscular Hemoglobin 31.0pg (27.0-35.0) Mean Corpuscular Hemoglobin Concent 34.7% (32.0-37.0) Red Cell Distribution Width 16.6% (12.3-15.4) Platelet Count 352bil/L (150-400) Neutrophils (%) (Auto) 52.0% (40-74) Lymphocytes (%) (Auto) 32.4% (14-46) Monocytes (%) (Auto) 12.0% (4-12) Eosinophils (%) (Auto) 2.3% (0-5) Basophils (%) (Auto) 0.2% (0-3) Sodium Level 139mEq/L (134-144) Potassium Level 4.2mEq/L (3.5-5.2) Chloride Level 99mEq/L (97-108) Carbon Dioxide Level 30mmol/L (18-29) Blood Urea Nitrogen 14mg/dL (6-20) Creatinine 0.87mg/dL (0.76-1.27) Estimat Glomerular Filtration Rate 104mL/min (>59) Glucose Level 99mg/dL (60-99) Calcium Level 8.7mg/dL (8.5-10.1) Phosphorus Level 4.6mg/dL (2.5-4.9) Magnesium Level 1.9mg/dL (1.6-2.6) Total Bilirubin 0.3mg/dL (0.0-1.2) Aspartate Amino Transf (AST/SGOT) 19U/L (0-50) Alanine Aminotransferase (ALT/SGPT) 20U/L (0-44) Alkaline Phosphatase 77U/L (25-150) Total Protein 5.6g/dL (6.4-8.4) Albumin 3.2g/dL (3.4-5.0) Microbiology Results Nasal MRSA screen pending Discharge Medications Discharge Medications Pantoprazole (Pantoprazole ) 40 Mg Tablet.dr 40 MG PO BIDAC Prescribed by: CLAY SKINNER, DO Additional med instructions Please do not take any more aspirin, Tylenol, or Ibuprofen until cleared to do so by your Primary care provider. Followup Plan Disposition: Home Follow-up plan Please establish care with a Primary care provider, we will send a referral to the [facility] as they generally have availability for hospital follow up. You should also follow up with a Gastro Intestinal specialist within 2 weeks for further management and discussion about the biopsy results from your colonoscopy which is still pending. Discharge Diet: No restrictions Discharge Activity: No restrictions Patient Instructions Please follow up with your dentist about getting your tooth pulled. This should help relieve your pain and eliminate the need for further pain medication. It is also very important that you take steps to get off Meth entirely; Meth is likely the cause of your tooth disease and will cause life changing difficulties if you continue to use. Follow-up Provider: [facility] Follow-up with PCP in: 2 weeks Provider: Clay Washington MD Follow-up in: 2 weeks Time spent Time spent planning and coordinating discharge greater than 35 minutes. Attending Statement The patient was seen and examined together with Dr. Skinner on 01/30/17 and I agree with the history, exam and plan as outlined in the note above. copies to: Clay Washington MD; [facility] Clay Skinner DO Jan 30, 2017 16:03 Chemo Mason Jan 30, 2017 18:03
[2017-01-30] MEDS ORDERED: Pantoprazole 40 mg ER24 Tablet PO SCH (16:30)
--- NOTE | 2017-01-31 12:40 | PATH ---
SURGICAL PATHOLOGY Attending Physician:Tadeo Washington MD CASE STATUS: Signed Out PATIENT NAME: YUAN COREA PID: [id number] : 1980 DATE COLLECTED:01/27/2017 00:00 SPECIMEN: 1: Duodenum, Biopsy 2: Gastric, Biopsy 3: Gastric, Biopsy CLINICAL HISTORY: GASTROINTESTINAL BLEED 1). DUODENUM ULCER BIOPSY 2). GASTRIC ULCER BIOPSY 3). GASTRIC BODY BIOPSY FINAL DIAGNOSIS: 1. Duodenum, Ulcer, Biopsy: Ulcerated duodenal mucosa with gastric surface foveolar metaplasia. Negative for intraepithelial lymphocytosis. Negative for dysplasia and malignancy. 2-3. Stomach, Ulcer, Body, Biopsies: Helicobacter pylori gastritis, confirmed by immunohistochemistry. Negative for intestinal metaplasia. Negative for dysplasia and malignancy. ICD10: R10.9 GROSS DESCRIPTION: The specimen is received in three formalin filled containers labeled with the patient's name. 1). The specimen is labeled "duodenum ulcer" and consists of a 0.1 x 0.1 x 0.1 CM portion of tissue which is entirely submitted in cassettes 1A. 2). The specimen is labeled "gastric ulcer" and consists of a 0.2 x 0.2 x 0.1 CM portion of tissue which is entirely submitted in cassette 2A. 3). The specimen is labeled "gastric body" and consists of a 0.3 x 0.2 x 0.2 CM portion of tissue which is entirely submitted in cassette 3A. 01/28/2017DC MICRO DESCRIPTION: Immunohistochemical stains were performed on blocks 2 and 3 to evaluate for Helicobacter infection. A control stain showed appropriate reactivity. Results: Block 2: H. Pylori IHC: Negative. Block 3: H. Pylori IHC: Positive. * This test was developed and its performance characteristics determined by [facility]. It has not been cleared or approved by the U.S. Food and Drug Administration. The FDA has determined that such clearance or approval is not necessary. This test is used for clinical purposes. It should not be regarded as investigational or for research. ICD-9 CODES: CPT CODES: 1: 33798 2: 75333, 73425 3: 13279, 27137 Electronically Signed Out Reny Soto MD [facility] Pathology [facility] [address] [place] [address], [place] [address] Technical component performed at [facility], [address], [place], [address]
== END 2017-01-30 12:28 | disposition home or self-care (01) | DRG 378 ==
LOC: SED 12:42 → PCC 14:28 → CCU 14:51 → PCC 01-27 09:11
PROVIDERS: ADMIT Internal Medicine; ATTEND Internal Medicine
PROC: 30233N1 Transfusion of Nonautologous Red Blood Cells into Peripheral Vein, Percutaneous Approach (ICD-10-PCS; 2017-01-26)
PROC: 0DJD8ZZ Inspection of Lower Intestinal Tract, Via Natural or Artificial Opening Endoscopic (ICD-10-PCS; 2017-01-27)
PROC: 0DB98ZX Excision of Duodenum, Via Natural or Artificial Opening Endoscopic, Diagnostic (ICD-10-PCS; principal; 2017-01-27 15:30)
PROC: 0DB68ZX Excision of Stomach, Via Natural or Artificial Opening Endoscopic, Diagnostic (ICD-10-PCS; 2017-01-27 15:30)
PROC: 30233N1 Transfusion of Nonautologous Red Blood Cells into Peripheral Vein, Percutaneous Approach (ICD-10-PCS; 2017-01-28)
DX: K92.2 Gastrointestinal hemorrhage, unspecified (principal); D62 Acute posthemorrhagic anemia; E83.51 Hypocalcemia; K21.9 Gastro-esophageal reflux disease without esophagitis; K02.9 Dental caries, unspecified; F15.90 Other stimulant use, unspecified, uncomplicated; F17.200 Nicotine dependence, unspecified, uncomplicated; R55 Syncope and collapse